=== PATIENT | male | born 1940 | race Caucasian/White ===

== ENCOUNTER 2017-07-03 11:48 | Outpatient (CLI) | payer MEDICARE, MEDICAID | END 2017-07-03 11:49 | disposition home or self-care (01) | LOC: BICRAD 11:48 | PROVIDERS: ATTEND Urology | DX: M54.9 Dorsalgia, unspecified (principal) | CPT/HCPCS: 74018 ==

== ENCOUNTER 2017-12-10 17:44 | Emergency (ER) | payer MEDICARE, MEDICAID ==
[2017-12-10] MEDS ORDERED: Acetaminophen 325 MG TAB ONE (19:19)
== END 2017-12-10 19:35 | disposition home or self-care (01) ==
LOC: ERS 17:44
DX: H60.92 Unspecified otitis externa, left ear (principal); J02.9 Acute pharyngitis, unspecified; I10 Essential (primary) hypertension; E11.9 Type 2 diabetes mellitus without complications; Z79.899 Other long term (current) drug therapy; Z79.891 Long term (current) use of opiate analgesic
CPT/HCPCS: 36416; 87081; 87430; 99283

== ENCOUNTER 2017-12-19 12:43 | Outpatient (CLI) | payer MEDICARE, MEDICAID ==
--- NOTE | 2017-12-19 15:22 | MRI ---
MRI LUMBAR SPINE: Date: 12-19-17 Provided Clinical History: Right hip pain, lumbar radiculopathy. FINDINGS: Five lumbar vertebral bodies are seen. Lumbar alignment appears normal. Vertebral body heights appear preserved. No focal concerning regional marrow signal abnormality is evident. Conus medullaris is no rmal in signal and terminates at an appropriate level. The visualized extraspinal soft tissues demons trate no significant abnormality. Small T2 hyperintense foci involving the left kidney, statistically reflecting cysts. L1-2: There is a broad based disc bulge and bilateral facet arthritis. There is mild central canal st enosis. There is no significant neuroforaminal apparent. L2-3: There is a broad based disc bulge and bilateral facet arthritis. There is left sided mild joe inal narrowing. No significant central canal or right neural foraminal narrowing. L3-4: There is a broad based disc bulge and bilateral facet arthritis. There is moderate central james l stenosis. There is mild left foraminal narrowing. There is mild to moderate right foraminal narrowi ng. L4-5: There is a broad based disc bulge with a superimposed central disc protrusion. Bilateral facet arthritis. Mild central canal stenosis. Moderate right foraminal narrowing. No significant left joe inal narrowing. L5-S1: There is no significant central canal or foraminal narrowing apparent. IMPRESSION: 1. Lumbar degenerative changes producing canal and foraminal narrowing as described above. POS: [facility]
== END 2017-12-19 12:44 | disposition home or self-care (01) ==
LOC: TBSIIMAG 12:43
PROVIDERS: ATTEND Neurological Surgery
DX: M47.26 Other spondylosis with radiculopathy, lumbar region (principal); M48.061 Spinal stenosis, lumbar region without neurogenic claudication; M99.83 Other biomechanical lesions of lumbar region
CPT/HCPCS: 72148

== ENCOUNTER 2018-01-08 07:01 | Day surgery (SDC) | payer MEDICARE, MEDICAID ==
[2018-01-01 11:03] VITALS: BMI 28.7
[2018-01-08] MEDS ORDERED: CEFAZOLIN 2 GM/50 ML BAG ONE (08:38)
[2018-01-08] MEDS ORDERED: Fentanyl 100 MCG/2 ML VIAL ONE ×4 (09:38→11:09)
[2018-01-08] MEDS ORDERED: SUGAMMADEX SODIUM 200 MG/2 ML VIAL ONE (09:39)
--- NOTE | 2018-01-08 10:34 | OP ---
DATE OF PROCEDURE: 01/08/2018 SURGEON: Andrew Mata M.D. GAS FITTER APPRENTICE: Vanna Abdi PROCEDURE: L3-4 laminectomy. PROCEDURE IN DETAIL: The patient was brought into the operating room and intubated. He was rolled i n prone position on gel-filled chest rolls. Incision made exposing L3-4 and our level was confirmed by x-ray. We performed complete L4 and inferior L3 laminectomies, completely decompressing the neura l elements. The wound was then extensively irrigated, immaculate hemostasis was secured. Vancomycin powder was applied and the wound was closed in anatomic layers.
[2018-01-08] MEDS ORDERED: HYDROcodone/Acetaminophen 5/325 mg Tablet ONE (12:28)
[2018-01-08] MEDS ORDERED: Dexamethasone 20 MG/5 ML VIAL ONE (14:51)
[2018-01-08] MEDS ORDERED: PROPOFOL 200 MG/20 ML VIAL ONE (14:51)
[2018-01-08] MEDS ORDERED: Lidocaine 1% PF 5 ML VIAL ONE (14:51)
[2018-01-08] MEDS ORDERED: Ondansetron PF 4 MG/2 ML Vial ONE (14:51)
[2018-01-08] MEDS ORDERED: ePHEDrine/0.9% NaCl/PF SYRINGE 50 mg/10 ml ONE (14:51)
== END 2018-01-08 12:50 | disposition home or self-care (01) ==
LOC: SDC 07:01
PROVIDERS: ATTEND Neurological Surgery
PROC: 00NY0ZZ Release Lumbar Spinal Cord, Open Approach (ICD-10-PCS; principal; 2018-01-08)
DX: M48.062 Spinal stenosis, lumbar region with neurogenic claudication (principal); M54.16 Radiculopathy, lumbar region; E11.9 Type 2 diabetes mellitus without complications; E78.5 Hyperlipidemia, unspecified; I25.10 Atherosclerotic heart disease of native coronary artery without angina pectoris; I10 Essential (primary) hypertension; K21.9 Gastro-esophageal reflux disease without esophagitis; Z79.84 Long term (current) use of oral hypoglycemic drugs; Z79.899 Other long term (current) drug therapy
CPT/HCPCS: 76001; 96374; 96376; J1100; J2001; J2405; J2704; J3010; J3370

== ENCOUNTER 2018-03-21 12:51 | Outpatient (CLI) | payer MEDICARE, MEDICAID ==
--- NOTE | 2018-03-21 15:44 | RAD ---
CERVICAL SPINE 4 VIEWS: HISTORY: Cervical radiculopathy without injury. Pain for 5 years. COMPARISON: 01/09/2007. FINDINGS: Four-view examination of the cervical spine is performed. There is fairly extensive multilevel disk- osteophytosis and facet arthrosis. The inferior aspect of C6, C6-7, C7, and C7-T1 are partially obsc ured on the lateral views. There is no open mouth odontoid view. No prevertebral soft tissue swelli ng. Generalized disk-osteophytosis and facet arthrosis. No abnormal translation between flexion and extension. IMPRESSION: Cervical spondylosis. No abnormal translation between flexion and extension. POS: [facility]
--- NOTE | 2018-03-21 15:48 | MRI ---
MRI CERVICAL SPINE WITHOUT CONTRAST: 03/21/18 HISTORY: Cervical radiculopathy. Cervical pain x5 years. COMPARISON: None. TECHNIQUE: Cervical spine MRI is performed without intravenous gadolinium administration. Multisequential, multi planar imaging performed. FINDINGS: Appropriate T1 marrow signal intensity of the cervical vertebrae. Cervical spine vertebral body heigh t is maintained. There is no fracture. there is no significant STIR hyperintensity to suggest vertebr al edema or ligamentous injury. There are type II Modic changes involving the superior end plate of T 1 and T2. The visualized brain parenchyma, cervicomedullary junction, cervical cord and the upper thoracic cord have a normal size and signal intensity. C2-C3: No significant central canal stenosis. Right neural foramen is patent. There is severe left fo raminal narrowing. C3-C4: Broad based disc bulge causes effacement of the ventral subarachnoid space and deforming the c ervical cord. Mild to moderate central canal stenosis. No signal abnormality in the cord. Moderate bi lateral foraminal narrowing. C4-C5: Broad based disc osteophyte complex abuts the thecal sac. Ventral CSF signal intensity is main tained. Mild deformity of the cervical cord. Mild central canal stenosis. Neural foramina are mildly narrowed bilaterally . C5-C6: There is a broad based disc osteophyte complex with a central component of posterior as well a s slightly superiorly disc extrusion. The subarachnoid space is effaced and there is deformity of the cervical spine. Moderate central canal stenosis. Mild to moderate bilateral foraminal narrowing. C6-C7: Broad based disc osteophyte complex abuts the thecal sac. The ventral subarachnoid space is ef faced. There is deformity of the cervical cord with moderate central canal stenosis. Moderate to javier re right and moderate left foraminal narrowing. C7-T1: No significant central canal stenosis. Mild to moderate bilateral foraminal narrowing. IMPRESSION: Degenerative change in the cervical spine as detailed above. POS: [facility]
== END 2018-03-21 12:52 | disposition home or self-care (01) ==
LOC: BICMRI 12:51
PROVIDERS: ATTEND Neurological Surgery
DX: M47.22 Other spondylosis with radiculopathy, cervical region (principal)
CPT/HCPCS: 72050; 72141

== ENCOUNTER 2018-04-17 01:02 | Outpatient (CLI) | payer MEDICARE, MEDICAID ==
[2018-04-17 12:54] LABS: Hemoglobin 14.4 g/dL (14.0-18.0); Mean Corpuscular Hemoglobin 32.3 pg (27.0-31.0); Mean Corpuscular Volume 95.1 fL (78.0-98.0); Mean Platelet Volume 8.1 fL (7.4-10.4); Platelet Count 219 thou/uL (130-400); RBC Distribution Width 11.3 % (11.5-14.5); Red Blood Cell (RBC) Count 4.46 mill/uL (4.70-6.10); White Blood Cell (WBC) Count 6.3 thou/uL (4.8-10.8)
[2018-04-17 13:18] LABS: Anion Gap 12 mmol/L (10-20); BUN (Urea Nitrogen) 12 mg/dL (8.4-25.7); Calc. Creatinine Clearance 0 mL/min (70-130); Calcium 10.3 mg/dL (7.8-10.44); Carbon Dioxide 21 mmol/L (23-31); Chloride 107 mmol/L (98-107); Estimated GFR-MDRD 62; Glucose 323 mg/dL (83-110); Potassium 4.6 mmol/L (3.5-5.1); Sodium 135 mmol/L (136-145)
== END 2018-04-17 01:03 | disposition home or self-care (01) ==
LOC: LABBT 01:02
PROVIDERS: ATTEND Neurological Surgery
DX: Z01.818 Encounter for other preprocedural examination (principal); M47.12 Other spondylosis with myelopathy, cervical region
CPT/HCPCS: 80048; 85027; 93005; 93010

== ENCOUNTER 2018-04-23 06:16 | Observation (INO) | payer MEDICARE, MEDICAID ==
[2018-04-17 11:24] VITALS: BMI 26.1
[2018-04-23] MEDS ORDERED: Sodium Chloride 0.9% 10 ML ONE (06:54)
[2018-04-23] MEDS ORDERED: Fentanyl 100 MCG/2 ML VIAL ONE (08:07)
[2018-04-23] MEDS ORDERED: Midazolam HCl 2 mg/2 ml Vial ONE (08:10)
[2018-04-23] MEDS ORDERED: Promethazine HCl 25 MG/ML VIAL IM PRN ×2 (09:48→10:59)
[2018-04-23] MEDS ORDERED: Promethazine HCl 25 MG/ML VIAL SLOW IVP PRN (09:48)
[2018-04-23] MEDS ORDERED: Ondansetron HCl/PF 4 MG/2 ML Vial IVP PRN (09:48)
--- NOTE | 2018-04-23 10:40 | OP ---
DATE OF PROCEDURE: 04/23/2018 CLINICAL REHABILITATION AIDE: HAYLEY Santana. PROCEDURES PERFORMED: Anterior cervical diskectomy C3-C4 and C5-C6 interbody arthrodesis, intervertebral biomechanical device, local morselized autograft, demineralized bone matrix, anterior titanium instrumentation C3-C4 and C5-C6. DESCRIPTION OF PROCEDURE: The patient was brought to the operating room and intubated. He was positioned supine in modest extension on a gel-filled donut. Incision was made in the right precervical area and dissected medial to the sternocleidomastoid muscle, identified the anterior cervical spine, and the level was confirmed by x-ray. We debrided the anterior osteophytes, placed distraction across the C3-C4 and C5-C6, completely removed the intervertebral disks and osteophytes, completely decompressing the neural elements. Bony endplates were decorticated for the purpose of arthrodesis, and appropriate-sized intervertebral biomechanical PEEK device was brought into the field and filled with demineralized bone matrix, local morselized autograft, and tapped in place securely at C3-C4 and C5-C6. Next, two separate anterior one level placed around the field and secured to C3-C4 and to C5-C6 using two 14-mm screws at each level. Wound was then extensively irrigated. Maximum hemostasis was secured. The wound was closed in anatomic layers over a drain. Job ID: [id number]
[2018-04-23] MEDS ORDERED: Promethazine 25 MG TAB PO PRN (10:59)
[2018-04-23] MEDS ORDERED: Mag-Al 1200 mg/1200 mg/30 ML UDCUP PO PRN (10:59)
[2018-04-23] MEDS ORDERED: Promethazine HCl 12.5 MG SUPP PR PRN (10:59)
[2018-04-23] MEDS ORDERED: Milk Of Magnesia 30 ML UDCUP PO PRN (10:59)
[2018-04-23] MEDS ORDERED: diphenhydrAMINE 50 MG/ML VIAL IVP PRN (10:59)
[2018-04-23] MEDS ORDERED: diphenhydrAMINE 25 MG CAP PO PRN (10:59)
[2018-04-23] MEDS ORDERED: Ondansetron PF 4 MG/2 ML Vial IM PRN (11:00)
[2018-04-23] MEDS ORDERED: Morphine 4 MG/ML VIAL SLOW IVP PRN ×2 (11:01→11:02)
[2018-04-23] MEDS ORDERED: traMADol HCl 50 MG TAB PO PRN (11:01)
[2018-04-23] MEDS ORDERED: HYDROcodone/Acetaminophen 10/325 mg Tablet PO PRN ×2 (11:01)
[2018-04-23] MEDS ORDERED: tiZANidine HCl 4 MG TAB PO PRN (11:01)
[2018-04-23] MEDS: traMADol HCl 50 MG TAB PO PRN ×2 (12:41→18:45)
[2018-04-23] MEDS: CEFAZOLIN 2 GM in Premix Bag 1 BAG IVPB SCH ×2 (14:40→21:45)
[2018-04-23] MEDS ORDERED: Ketorolac Tromethamine 30 MG/ML VIAL ONE (14:54)
[2018-04-23] MEDS ORDERED: Glycopyrrolate 0.2 MG/ML 5 ML SYRINGE ONE (14:54)
[2018-04-23] MEDS ORDERED: Ondansetron PF 4 MG/2 ML Vial ONE (14:54)
[2018-04-23] MEDS ORDERED: Rocuronium Bromide 10 MG/ML (10ML VIAL) ONE (14:54)
[2018-04-23] MEDS ORDERED: PROPOFOL 200 MG/20 ML VIAL ONE (14:54)
[2018-04-23] MEDS: glipiZIDE 5 MG TAB PO SCH (17:53)
[2018-04-23] MEDS: metFORMIN 500 MG TAB PO SCH (17:53)
--- NOTE | 2018-04-23 17:57 | CON ---
DATE OF CONSULTATION: REASON FOR CONSULTATION: Medical management, diabetes, hypertension. HISTORY OF PRESENT ILLNESS: The patient is a 77-year-old male, who was admitted to the hospital to undergo an anterior cervical diskectomy and fusion. The patient is currently postop and doing well. He is not having significant pain. In fact, he feels like he is ready to go home and feels eager to go home. He has no specific concerns or complaints at this particular time. REVIEW OF SYSTEMS: Fourteen system review was negative for any findings. Specifically, he is not having pain, fever, or any difficulty swallowing. PAST MEDICAL HISTORY: Notable for hypertension, diabetes mellitus type 2, gastroesophageal reflux, BPH, and history of episode of pancreatitis. PAST SURGICAL HISTORY: History of surgery to his right shoulder. SOCIAL HISTORY: History of occasional alcohol. No smoking. No drugs. Lives with his son. FAMILY HISTORY: No significant history of coronary artery disease, stroke, or cancer. ALLERGIES: NONE. CURRENT MEDICATIONS: 1. Finasteride 5 mg daily. 2. Nexium 40 daily. 3. Metformin 1000 mg b.i.d. 4. Glipizide 5 mg daily. 5. Lisinopril 20 daily. 6. Atenolol 25 mg daily. 7. Tamsulosin 0.4 mg daily. PHYSICAL EXAMINATION: GENERAL APPEARANCE: Age-appropriate male, Ecuadorean-speaking only. No distress. He is awake, alert, oriented, pleasant, and cooperative. HEENT: PERRL. No acute lesions. NECK: Has bandage anteriorly with a ROMEO drain with bulb suction with some serosanguinous fluid. HEART: Regular rate and rhythm without murmurs, gallops, or rubs. LUNGS: Clear to auscultation bilaterally with good chest wall expansion or exchange. ABDOMEN: Soft, nontender, and nondistended. Positive bowel sounds. No masses. No organomegaly. EXTREMITIES: Warm and dry. No edema. No cyanosis or clubbing. SKIN: Warm and dry. NEURO: The patient is moving all extremities spontaneously, has no evidence of focal deficits. LABORATORY DATA: Blood sugars 171 to 193. IMPRESSION AND PLAN: 1. Status post surgery for anterior approach cervical diskectomy with fusion. 2. Diabetes mellitus. The patient is on carb consistent diet. Resuming his usual home medications. We will add Accu-Cheks. 3. Hypertension. Resuming his usual home medical regimen. 4. History of BPH. We will continue with his home medications. I appreciate the consult. We will be happy to follow the patient while he is in the hospital. Job ID: [id number]
[2018-04-23] MEDS: Sodium Chloride 0.9% 1,000 ML IV SCH (18:53)
[2018-04-23] MEDS ORDERED: Finasteride 5 MG TAB PO SCH (21:00)
[2018-04-24] MEDS: hydrALAZINE 20 MG/ML VIAL SLOW IVP PRN ×2 (00:39→05:35)
[2018-04-24] MEDS: Sodium Chloride 0.9% 1,000 ML IV SCH (01:19)
[2018-04-24] MEDS: CEFAZOLIN 2 GM in Premix Bag 1 BAG IVPB SCH (05:35)
[2018-04-24 08:18] VITALS: BP 149/61; TEMP 98.3
[2018-04-24] MEDS ORDERED: Tamsulosin HCl 0.4 MG CAP PO SCH (09:00)
[2018-04-24] MEDS ORDERED: Lisinopril 20 MG TAB PO SCH (09:00)
[2018-04-24] MEDS ORDERED: Atenolol 25 MG TAB PO SCH (09:00)
[2018-04-24] MEDS: metFORMIN 500 MG TAB PO SCH (09:45)
[2018-04-24] MEDS: glipiZIDE 5 MG TAB PO SCH (09:45)
--- NOTE | 2018-04-24 11:52 | DIS ---
DATE OF ADMISSION: 04/23/2018 DATE OF DISCHARGE: 04/24/2018 The patient is a 77-year-old male status post C3-C4, C5-C6 ACDF. Following the procedure, he was transitioned to the [facility] floor where his pain was well controlled with p.o. medications, he did have some nausea, vomiting, but this is improved with medications and he was tolerating regular diet. The patient has been walking easily in the department and voiding appropriately. He did have ROMEO drain placed intraoperatively, but only 30 mL of output over the 1st night. He is awake, alert, sitting up, and walking around the room this morning. He is in no acute distress. He has free active range of motion of all extremities, 5/5 strength throughout. Incision is dry, soft, intact. There is a small amount of serosanguineous drainage in the ROMEO. We will plan to dismiss the patient to home following ROMEO removal. I have discussed home care precautions. We will follow up in 2 weeks in the office. Job ID: [id number]
== END 2018-04-24 11:13 | disposition home or self-care (01) ==
LOC: SDC 06:16 → SJJU 10:38 → INTOOBSV 10:38
PROVIDERS: ADMIT Neurological Surgery; ATTEND Neurological Surgery
PROC: 0RG20A0 Fusion of 2 or more Cervical Vertebral Joints with Interbody Fusion Device, Anterior Approach, Anterior Column, Open Approach (ICD-10-PCS; principal; 2018-04-23)
DX: M50.322 Other cervical disc degeneration at C5-C6 level (principal); I10 Essential (primary) hypertension; I25.10 Atherosclerotic heart disease of native coronary artery without angina pectoris; E11.9 Type 2 diabetes mellitus without complications; E78.5 Hyperlipidemia, unspecified; K21.9 Gastro-esophageal reflux disease without esophagitis; N40.0 Benign prostatic hyperplasia without lower urinary tract symptoms; Z79.84 Long term (current) use of oral hypoglycemic drugs; Z79.899 Other long term (current) drug therapy; Z98.890 Other specified postprocedural states
CPT/HCPCS: 20930; 20936; 22551; 22552; 22846; 22853 ×2; 76000; 82962 ×2; 96365; 96366 ×2; 96375; 96376; 97139; C1713; C1776; G0378; 36416; J0360; J1885; J2250; J2405; J2704; J3010; J3490

== ENCOUNTER 2018-05-10 12:37 | Outpatient (CLI) | payer MEDICARE, MEDICAID ==
--- NOTE | 2018-05-10 14:51 | RAD ---
CERVICAL SPINE AP AND LATERAL STANDARD: Date: 05/10/18 HISTORY: M54.13 cervical radiculopathy. COMPARISON: Cervical spine radiographs dated 03/21/18. FINDINGS: New ACDF hardware at C3-4, as well as C5-6. There is satisfactory location of diskectomy cages. No ca ge migration. No acute superimposed fracture or malalignment. C6-7 degenerative changes are present. IMPRESSION: 1. Satisfactory postoperative appearance. 2. Only seen on the second open-mouth odontoid view is a possible radiopacity projecting over the rig ht orbit. POS: [facility]
== END 2018-05-10 12:38 | disposition home or self-care (01) ==
LOC: TBSIIMAG 12:37
PROVIDERS: ATTEND Neurological Surgery
DX: M54.12 Radiculopathy, cervical region (principal); Z98.890 Other specified postprocedural states
CPT/HCPCS: 72040

== ENCOUNTER 2018-06-12 14:07 | Outpatient (CLI) | payer MEDICARE, MEDICAID ==
--- NOTE | 2018-06-12 14:41 | RAD ---
CERVICAL SPINE THREE VIEWS: Indications: Cervical disc degeneration. Follow up surgery. Comparison: 05-10-18 FINDINGS: Anterior fusion procedure with anterior plate and screws noted transfixing C3-4 interbody implant. Sl ight retraction of the C3 screws is stable from prior exam. Anterior plate and screws again noted transfixing C5-6 with interbody implant. The hardware is unchan ged in position. Mild loss of disc space at C4-5 with mild degenerative changes stable in appearance. Loss of disc spa ce at C6-7 with degenerative spurring is again noted. Posterior alignment is preserved and unchanged. IMPRESSION: Stable findings when compared to 05-10-18. POS: [facility]
== END 2018-06-12 14:08 | disposition home or self-care (01) ==
LOC: TBSIIMAG 14:07
PROVIDERS: ATTEND Neurological Surgery
DX: M48.02 Spinal stenosis, cervical region (principal); M50.30 Other cervical disc degeneration, unspecified cervical region
CPT/HCPCS: 72040

== ENCOUNTER 2018-12-13 13:53 | Inpatient (IN) | payer MEDICARE, MEDICAID ==
[2018-12-13] MEDS ORDERED: Pantoprazole 40 MG VIAL ONE (14:12)
--- NOTE | 2018-12-13 14:24 | RAD ---
EXAM: Chest one view: HISTORY: Abdominal and epigastric pain COMPARISON: 08/16/2015 FINDINGS: Cervical spine anterior cervical fusion changes. Heart size: Within normal limits. Lungs: Clear of acute process. No evidence for pneumonia, pleural effusion, acute edema, or pneumothorax, or other significant acute process. IMPRESSION: No significant acute intrathoracic disease. Atherosclerosis of the aorta.
[2018-12-13] MEDS ORDERED: Morphine 4 MG/ML VIAL ONE (14:37)
[2018-12-13] MEDS ORDERED: Ondansetron PF 4 MG/2 ML Vial ONE (14:38)
[2018-12-13 15:07] LABS: Hemoglobin 14.3 g/dL (14.0-18.0); Mean Corpuscular HGB CONC 35.1 g/dL (32.0-36.0); Mean Corpuscular Hemoglobin 33.6 pg (27.0-31.0); Mean Corpuscular Volume 95.8 fL (78.0-98.0); Mean Platelet Volume 7.4 fL (7.4-10.4); Platelet Count 195 thou/uL (130-400); RBC Distribution Width 11.5 % (11.5-14.5); Red Blood Cell (RBC) Count 4.24 mill/uL (4.70-6.10); White Blood Cell (WBC) Count 9.2 thou/uL (4.8-10.8)
[2018-12-13 15:23] LABS: Band 12 % (5-11); Lymphocytes 5 % (21-51); MDiff Complete? YES; Monocytes 4 % (0-10); Neutrophil 79 % (42-75); Platelet Morphology Comment Appears Adequate
[2018-12-13 15:30] LABS: ALT (SGPT) 211 U/L (8-55); AST (SGOT) 647 U/L (5-34); Alkaline Phosphatase 101 U/L (40-110); Anion Gap 15 mmol/L (10-20); BUN (Urea Nitrogen) 18 mg/dL (8.4-25.7); Bilirubin, Total 1.5 mg/dL (0.2-1.2); Calc. Creatinine Clearance 0 mL/min (70-130); Calcium 10.1 mg/dL (7.8-10.44); Carbon Dioxide 23 mmol/L (23-31); Chloride 104 mmol/L (98-107); Estimated GFR-MDRD 59; Glucose 295 mg/dL (83-110); Lipase 23 U/L (8-78); Potassium 4.7 mmol/L (3.5-5.1); Sodium 137 mmol/L (136-145)
[2018-12-13] MEDS ORDERED: Cefepime 1 GM VIAL ONE (16:08)
--- NOTE | 2018-12-13 16:31 | ULT ---
Exam: Right upper quadrant ultrasound: HISTORY: Pain COMPARISON: None FINDINGS: Visualized liver:Minimally enlarged with slightly coarse heterogeneous echogenicity Gallbladder:No evidence of gallstones, wall thickening, edema, or pericholecystic fluid. Common bile duct:0.8 cm The visualized pancreas and right kidney are unremarkable. No evidence for abscess or abnormal fluid collection in the right upper quadrant. IMPRESSION: Minimal hepatomegaly with coarse altered echogenicity. Common bile duct 0.8 cm. No evidence of gallst ones.
[2018-12-13] MEDS ORDERED: Acetaminophen 500 MG TAB ONE (18:46)
--- NOTE | 2018-12-13 19:12 | CT ---
CT Abdomen Pelvis W Con History: Abdominal pain Comparison: Gallbladder ultrasound same day Findings: Mild scarring in the lung bases. No pericardial effusion. Liver, spleen, gallbladder are al l unremarkable as well as the pancreas. Aortic contour is nonaneurysmal. Dense calcifications throughout the prostate. Moderate diverticular disease of the sigmoid and descen ding colon without active current inflammation. The appendix is visualized and is normal. No free intraperitoneal gas or fluid. No retroperitoneal periaortic adenopathy. Adrenal glands are normal. High-grade degenerative disc space disease at L5/S1. No acute osseous abnormality. Impression: No acute inflammatory process within the abdomen or pelvis.
[2018-12-13] MEDS ORDERED: Dextrose 5% in Water 1,000 ML IV PRN (21:07)
[2018-12-13] MEDS ORDERED: Dextrose 50% Abboject 50 ML SYRINGE SLOW IVP PRN (21:07)
[2018-12-13] MEDS ORDERED: hydrALAZINE 20 MG/ML VIAL SLOW IVP PRN (21:07)
[2018-12-13] MEDS ORDERED: HumaLOG 300 UNITS/3 ML VIAL SC PRN (21:07)
[2018-12-13] MEDS ORDERED: Ondansetron PF 4 MG/2 ML Vial IVP PRN (21:07)
[2018-12-13 21:19] LABS: Troponin I 0.021 ng/mL (< 0.028)
[2018-12-13] MEDS ORDERED: Famotidine/PF 20 mg/2ml Vial SLOW IVP SCH (22:00)
[2018-12-13 23:00] VITALS: BMI 29.3
[2018-12-13] MEDS: Sodium Chloride 0.9% 1,000 ML IV SCH (23:26)
[2018-12-13] MEDS: Piperacillin/Tazobactam 3.375 GM in Sodium Chloride 0.9% 100 ML IVPB SCH (23:27)
--- NOTE | 2018-12-13 23:46 | HP ---
PRIMARY CARE PHYSICIAN: Mery Patino MD. CHIEF COMPLAINT: Epigastric pain. HISTORY OF PRESENT ILLNESS: Mr. Gaviria is a pleasant 78-year-old gentleman, who presents to the emergency room after he had a sudden onset of severe epigastric pain. He said it started in the center of his abdomen in the upper part and radiated to both sides. He also started vomiting several times. His [id number], who is acting as the military education coordinator, says that he got up in the morning as usual and was feeling fine. He drank a smoothie and then went for his usual walk. He came back, fed his horses and came inside and this is about when the pain started. He also had some chills and a funny feeling in his throat. The pain radiated towards his back and otherwise no other complaints. He denies having any carin chest pain per se, although the pain did kind of radiate upwards. There was no shortness of breath noted. No palpitations. When he came to the ER, he was noted to have an elevated temperature of a 102.9. His heart rate was also elevated and it was also noted that his liver function tests were elevated too. He was initially evaluated by General Surgery, but they thought that his problems were more medical related and he is being admitted for further evaluation. REVIEW OF SYSTEMS: All systems were reviewed and are negative except for that mentioned in the history of present illness. PAST MEDICAL HISTORY: Significant for pancreatitis in the past, hypertension, diabetes and BPH. With regard to the pancreatitis, he is not really sure what caused it. However, he did drink heavily in the past, but he says he does not do this any anymore and he was not a drinker during the time that he had the pancreatitis. PAST SURGICAL HISTORY: He has had right shoulder surgery, back surgery. FAMILY HISTORY: No history of any heritable diseases. ALLERGIES: NO KNOWN DRUG ALLERGIES. SOCIAL HISTORY: He is a nonsmoker and nondrinker. He lives with family and he is a full code. CURRENT MEDICATIONS: Include: 1. Metformin 1000 mg twice daily. 2. Flomax 0.4 mg at bedtime. 3. Glipizide 5 mg daily. 4. Lisinopril 20 mg daily. 5. Nexium 40 mg daily. 6. Finasteride 5 mg daily. 7. Atenolol 25 mg daily. PHYSICAL EXAMINATION: GENERAL: He is alert and oriented. He appears to be in no acute distress. He is well developed and well nourished. VITAL SIGNS: Currently blood pressure 142/72, heart rate 115, respiratory rate of 24, temperature is 100.8. HEENT: Pupils are equal, round, and reactive. Extraocular muscles are intact. His sclerae anicteric. Throat, no erythema, no exudates. NECK: No adenopathy, no bruits. LUNGS: Clear to auscultation. There is no wheezing, no rales, no rhonchi. CARDIOVASCULAR: He has a normal S1, S2. There is no S3 or S4. No murmurs, clicks, or rubs. ABDOMEN: Soft, distended. Positive for bowel sounds. There is no rebound, no guarding. No organomegaly. He did have some mild epigastric tenderness, but again no rebound, no guarding, no organomegaly. EXTREMITIES: There is no clubbing, cyanosis. No edema. No calf tenderness, no joint effusions. NEUROLOGIC: His cranial nerves are intact. Muscle strength is 5/5. SKIN AND INTEGUMENT: No skin changes, no rash. LABORATORY DATA: Sodium 137, potassium 4.7, chloride is 104, CO2 is 23, BUN of 18, creatinine 1.2, glucose is 295, total bilirubin is 1.5, AST is 647, ALT is 211. Lactic acid is 3.6. Troponin is 0.010. White blood cell count is 9.2, hemoglobin 14.3, hematocrit is 40.7, and platelet count is 195. He had an abdominal ultrasound showing mild hepatomegaly with some echogenicity. The common bile duct was 0.8. No evidence of any gallstones. No edema or pericholecystic fluid. He had a CT scan of the abdomen and pelvis, showing no inflammatory process within the abdomen. ASSESSMENT: This is a pleasant 78-year-old gentleman, who presents with the sudden onset of epigastric pain, nausea and vomiting. He has been noted to have elevated liver function test. However, no evidence of any gallstones radiographically either on ultrasound or CT. He also meets sepsis criteria with fever and elevated lactic acid as well as tachycardia. The patient will be admitted to telemetry due to the sepsis. It is unclear the etiology of the epigastric pain, but suspect a gastrointestinal origin. Therefore, we will go ahead and consult Gastroenterology. We will place him empirically on Zosyn. If blood cultures have not been done in the ER, we will go ahead and get these. 1. The patient has risk factors for coronary artery disease with diabetes and hypertension and at times epigastric pain can be an anginal equivalent. If his gastroenterology workup is unremarkable, then likely we will need to pursue a cardiac workup such as getting a stress test. 2. Hypertension. His blood pressure was initially elevated. This has since improved. We will continue the atenolol as well as the lisinopril and have p.r.n. medications available. 3. Diabetes mellitus. We will hold off on the metformin as well as the glipizide and place him on a sliding scale insulin. Otherwise, further treatment is pending his clinical course. Job ID: [id number]
[2018-12-14 00:18] LABS: Lactic Acid 3.7 mmol/L (0.5-2.2)
[2018-12-14] MEDS ORDERED: HYDROcodone/Acetaminophen 5/325 mg Tablet PO PRN ×2 (00:49)
[2018-12-14] MEDS ORDERED: Acetaminophen 325 MG TAB PO PRN ×2 (00:49→20:41)
[2018-12-14] MEDS ORDERED: Morphine 4 MG/ML VIAL SLOW IVP PRN (00:49)
[2018-12-14] MEDS: Piperacillin/Tazobactam 3.375 GM in Sodium Chloride 0.9% 100 ML IVPB SCH ×4 (05:23→22:30)
[2018-12-14 06:22] LABS: #Monocytes 0.5 thou/uL (0.11-0.59); #Neutrophils 8.1 thou/uL (1.40-6.50); %Eosinophils 0.2 % (0.0-10.0); %Lymphocytes 10.2 % (21.0-51.0); %Monocytes 5.5 % (0.0-10.0); Hemoglobin 12.5 g/dL (14.0-18.0); Mean Corpuscular HGB CONC 34.6 g/dL (32.0-36.0); Mean Corpuscular Hemoglobin 33.5 pg (27.0-31.0); Mean Corpuscular Volume 96.9 fL (78.0-98.0); Mean Platelet Volume 7.6 fL (7.4-10.4); Platelet Count 166 thou/uL (130-400); RBC Distribution Width 11.9 % (11.5-14.5); Red Blood Cell (RBC) Count 3.74 mill/uL (4.70-6.10); White Blood Cell (WBC) Count 9.7 thou/uL (4.8-10.8)
[2018-12-14 06:40] LABS: Anion Gap 14 mmol/L (10-20); BUN (Urea Nitrogen) 19 mg/dL (8.4-25.7); Calc. Creatinine Clearance 51 mL/min (70-130); Calcium 9.1 mg/dL (7.8-10.44); Carbon Dioxide 21 mmol/L (23-31); Chloride 106 mmol/L (98-107); Estimated GFR-MDRD 56; Glucose 169 mg/dL (83-110); Potassium 4.1 mmol/L (3.5-5.1); Sodium 137 mmol/L (136-145)
[2018-12-14] MEDS: Atenolol 25 MG TAB PO SCH (08:44)
[2018-12-14] MEDS: Finasteride 5 MG TAB PO SCH (08:44)
[2018-12-14] MEDS: Tamsulosin HCl 0.4 MG CAP PO SCH (08:44)
[2018-12-14] MEDS: Famotidine/PF 20 mg/2ml Vial SLOW IVP SCH ×2 (08:45→20:19)
[2018-12-14] MEDS: Enoxaparin Sodium 40 MG/0.4 ML SYRINGE SC SCH (08:45)
[2018-12-14] MEDS: Sodium Chloride 0.9% 1,000 ML IV SCH ×3 (08:47→22:32)
[2018-12-14] MEDS ORDERED: FLU VACC TS2019-20(65YR UP)/PF 180 MCG/0.5 ML SYRINGE IM ONE (09:00)
[2018-12-14] MEDS ORDERED: Prevnar 13-Val Conj/PF 0.5 ML SYRINGE IM ONE (09:00)
[2018-12-14] MEDS ORDERED: Aspirin 325 MG TAB PO SCH (09:15)
[2018-12-14 10:45] LABS: Lactic Acid 3.1 mmol/L (0.5-2.2)
[2018-12-14 11:11] LABS: ALT (SGPT) 397 U/L (8-55); AST (SGOT) 376 U/L (5-34); Albumin 3.4 g/dL (3.4-4.8); Alkaline Phosphatase 103 U/L (40-110); Bilirubin, Direct 3.8 mg/dL (0.1-0.3); Bilirubin, Total 4.9 mg/dL (0.2-1.2); Lipase 20 U/L (8-78); Protein, Total 6.3 g/dL (5.8-8.1)
--- NOTE | 2018-12-14 11:58 | PDOC.HOSPP ---
- Subjective Encounter Date: 12/14/18 Encounter Time: 10:21 Subjective: 78 y/o male with BPH, HTN and DM admitted with acute onset of epigastric pain associated with nausea, fever and abnormal LFT. Started on broad spectrum antibiotics. Abdominal pain has subsided but he continues to have intermittent fever. No further vomiting but he is NPO currently - Objective Vital Signs & Weight: Vital Signs (12 hours) Temp Pulse Resp BP BP Pulse Ox 12/14/18 11:29 99.3 F 80 16 153/70 H 94 L 12/14/18 08:34 100.2 F H 84 16 134/61 95 12/14/18 08:00 95 12/14/18 03:38 99.1 F 80 18 132/59 L 94 L Weight Weight 160 lb 5 oz Result Diagrams: 12/14/18 05:06 12/14/18 05:06 Additional Labs: Accuchecks 12/14/18 12/14/18 12/14/18 11:30 05:36 00:15 POC Glucose 173 H 168 H 174 H Hospitalist ROS - Medication Medications: Active Medications Generic Name Dose Route Start Last Admin Trade Name Ilyaq PRN Reason Stop Dose Admin Atenolol 25 mg 12/14/18 09:00 12/14/18 08:44 Tenormin PO 25 mg DAILY STEVE Administration Enoxaparin Sodium 40 mg 12/14/18 09:00 12/14/18 08:45 Lovenox SC 40 mg 0900 STEVE Administration Famotidine 20 mg 12/14/18 09:00 12/14/18 08:45 Pepcid SLOW IVP 20 mg Q12HR STEVE Administration Finasteride 5 mg 12/14/18 09:00 12/14/18 08:44 Proscar PO 5 mg DAILY STEVE Administration Piperacillin Sod/Tazobactam 100 mls @ 200 mls/hr 12/13/18 23:59 12/14/18 11: 34 Sod 3.375 gm/ Sodium Chloride IVPB 100 mls Q6HR STEVE Administration Sodium Chloride 1,000 mls @ 100 mls/hr 12/13/18 21:15 12/14/18 08:47 Normal Saline 0.9% IV 1,000 mls .Q10H STEVE Administration Tamsulosin HCl 0.4 mg 12/14/18 09:00 12/14/18 08:44 Flomax PO 0.4 mg DAILY STEVE Administration - Exam General Appearance: awake alert Eye: anicteric sclera ENT: normocephalic atraumatic Neck: supple, symmetric, no JVD Heart: RRR Respiratory: CTAB, no wheezes, no rales, no ronchi, normal chest expansion Gastrointestinal: soft, non-distended, normal bowel sounds Gastrointestinal - other findings: mild tenderness on deep palptation Extremities: no cyanosis, no edema Neurological: cranial nerve grossly intact, no focal deficits Psychiatric: normal affect, A&O x 3 Hosp A/P (1) Sepsis Code(s): A41.9 - SEPSIS, UNSPECIFIED ORGANISM Status: Acute (2) Lactic acidosis Code(s): E87.2 - ACIDOSIS Status: Acute (3) Hyperbilirubinemia Code(s): E80.6 - OTHER DISORDERS OF BILIRUBIN METABOLISM Status: Acute (4) Abnormal LFTs Code(s): R94.5 - ABNORMAL RESULTS OF LIVER FUNCTION STUDIES Status: Acute (5) Abdominal pain Code(s): R10.9 - UNSPECIFIED ABDOMINAL PAIN Status: Acute (6) Diverticula of colon Code(s): K57.30 - DVRTCLOS OF LG INT W/O PERFORATION OR ABSCESS W/O BLEEDING Status: Acute (7) Diabetes mellitus Code(s): E11.9 - TYPE 2 DIABETES MELLITUS WITHOUT COMPLICATIONS Status: Acute (8) BPH (benign prostatic hyperplasia) Code(s): N40.0 - BENIGN PROSTATIC HYPERPLASIA WITHOUT LOWER URINRY TRACT SYMP Status: Acute (9) HTN (hypertension) Code(s): I10 - ESSENTIAL (PRIMARY) HYPERTENSION Status: Acute - Plan Continue broad spectrum antibiotic therapy with zosym NPO to continue awaiting Gi consult. Get MRI abdomen, CRP, ESR, lactic acid. Get CMP in the am.
--- NOTE | 2018-12-14 16:03 | MRI ---
MRI ABDOMEN WITH AND WITHOUT IV CONTRAST: 12/14/18 HISTORY: Obstructive jaundice of unclear etiology. Epigastric pain. FINDINGS: No gallstones are seen. No intra or extrahepatic biliary ductal dilatation is seen. The common duct m easures 7 mm in diameter. There is a filling defect in the common bile duct on a single image (image 29, series 3). This may represent choledocholithiasis. The liver demonstrates signal dropout of the [id number] images concerned for fatty infiltration. No hepatic mass is seen. The spleen, pancreas and adrenal glands are normal. There are cysts in the kid neys on both sides. No free fluid or lymphadenopathy is seen. There is no evidence of aneurysmal dilatation of the abdomi nal aorta. There are degenerative changes in the spine. IMPRESSION: 1. Probable choledocholithiasis. 2. Bilateral renal cysts. POS: [facility]
[2018-12-14 16:10] LABS: HBCM Index 0.05 S/CO (0-0.79); HBSAg Index 0.25 S/CO (0-0.99); Hep A IgM AB Non-Reactive (NonReactive); Hep A IgM S/CO 0.22 S/CO (0-0.79); Hep B Surf Ag Non-Reactive S/CO (NonReactive); Hep C IgG Ab Non-Reactive (NonReactive); Hep C Index 0.21 S/CO (0-0.79); Hepatitis B Core IgM Abs Non-Reactive (NonReactive)
--- NOTE | 2018-12-14 17:33 | CON ---
DATE OF CONSULTATION: 12/14/2018 REASON FOR CONSULT: Abdominal pain and abnormal liver enzymes. HISTORY OF PRESENT ILLNESS: This comes from talking with the patient and the patient's son at the bedside, who translates for him. Mr. Gaviria is a pleasant 78-year-old gentleman, who was admitted to the hospital, presented to the emergency room yesterday with complaints of epigastric pain, it is pretty severe, radiating to his back, going rather on the side. His son notes that he has been having this on and off after eating sometimes and he would take some vsem-vax-lmzddgo omeprazole, thinking it was just spicy foods and reflux or ulcers, but this pain was pretty bad, it has caused him to vomit. He also had some chills and rigors associated with it and decided to come to the hospital. His son notes he does not usually go to the doctor and does not really complain when he is sick typically. Here, he was evaluated, pulse around 100, temperature up to 102. He had cultures drawn and was given vancomycin, cefepime as well as Protonix and some IV fluids and admitted to the hospital. In the emergency room, he had chest x-ray, which was normal. Abdominal ultrasound with common bile duct of 0.8 cm with no overt gallstones, minimal hepatomegaly, and no evidence of gallbladder wall thickening and then last evening, he had a CT scan of the abdomen and pelvis, showed prostatic calcifications, diverticular disease without inflammation. No adenopathy and no acute inflammatory process in the abdomen or pelvis. Now apparently, he is going for an MRI. He feels much better today and wants to leave. He actually asked if he can go home. PAST MEDICAL HISTORY: He had pancreatitis in this hospital in 2011, was told this is related to alcohol. He was not really a heavy drinker, but does not drink at all now, that has never recurred. He has had diabetes and BPH. PAST SURGICAL HISTORY: Right shoulder surgery, multiple back surgeries, and ACDF about a month ago. FAMILY HISTORY: Negative for colorectal cancer or liver disease. ALLERGIES: NONE KNOWN. SOCIAL HISTORY: Does not smoke. Does not drink now. Lives with his family. Does not use drugs. HOME MEDICATIONS: 1. Metformin. 2. Glipizide. 3. Tamsulosin. 4. Lisinopril. 5. Proscar. 6. Nexium. 7. Atenolol. Here, he is on, 1. Tenormin. 2. Lovenox. 3. Pepcid. 4. Proscar. 5. Apresoline p.r.n. 6. Insulin sliding scale. 7. Zofran p.r.n. 8. Zosyn. 9. Normal saline 100. PHYSICAL EXAMINATION: GENERAL: He is resting comfortably in bed. VITAL SIGNS: Since admission, his T-max is 100.2, which was early this morning, presently 99.3. Pulse is 80, respiratory rate 16, and blood pressure 153/70. GENERAL: He may be a little bit icteric, it is hard to tell. His conjunctivae are clear, little bit muddy. Oropharynx, no lesions. NECK: Supple. No adenopathy. LUNGS: Clear. He will take a deep breath without pain. HEART: Regular rate and rhythm. ABDOMEN: Soft, nontender, slightly protuberant. No shifting dullness. No fluid wave. No palpable hepatomegaly. No right upper quadrant pain or guarding. EXTREMITIES: No clubbing, cyanosis, or edema. SKIN: Without rash or lesions. LABORATORY STUDIES: White count when he came in, he was 9.2, it was 9.7 today; hemoglobin is 12.5; platelet count is 166. He had 84% segs, sedimentation rate was 15. Sodium was 137, potassium 4.7, BUN and creatinine are 18 and 1.2, glucose 295. Bilirubin was 1.5. AST and ALT were 647 and 211 with alkaline phosphatase of 101 on admission. Albumin was 4, protein was 7, CRP was 9.86. Hemoglobin A1c last October was 8, lipase is 23. Lactic acid was 3.6 yesterday, 3.1 today. Today's bilirubin is 4.9, AST of 376, and ALT of 397. Direct bilirubin is 3.8. Electrolytes within normal limits. Urinalysis not done. Microbiology, blood cultures are pending. Urine culture was not drawn. ASSESSMENT: The patient in acute illness with epigastric pain radiating to his back with elevated liver enzymes and fever, this would be suspicious for cholangitis. He is on antibiotics. His temperature has come down. However, his bilirubin has gone up. Interestingly, reportedly, he did not have any stones on ultrasound and an 8 mm common bile duct. CAT scan, there was no comment on anything about the liver at all. Apparently, he is going for an MRI now of the abdomen and I called [facility] that I am not sure what they ordered with that, but I will ask for MRCP protocol. Would continue antibiotics. He has had symptoms of pain in the epigastrium going to his back, concerning for possible biliary infection and biliary pain on and off recently. We will check hepatitis panel. We will await MRI. Job ID: [id number]
[2018-12-15] MEDS: Piperacillin/Tazobactam 3.375 GM in Sodium Chloride 0.9% 100 ML IVPB SCH ×4 (06:02→23:45)
[2018-12-15] MEDS: Atenolol 25 MG TAB PO SCH (06:22)
[2018-12-15 07:45] LABS: #Lymphocytes 0.5 thou/uL (1.20-3.40); #Monocytes 0.3 thou/uL (0.11-0.59); #Neutrophils 4.4 thou/uL (1.40-6.50); %Basophils 0.3 % (0.0-1.0); %Eosinophils 0.2 % (0.0-10.0); %Lymphocytes 8.9 % (21.0-51.0); %Monocytes 5.4 % (0.0-10.0); %Neutrophils 85.1 % (42.0-75.0); Hemoglobin 12.3 g/dL (14.0-18.0); Mean Corpuscular HGB CONC 34.7 g/dL (32.0-36.0); Mean Corpuscular Hemoglobin 33.2 pg (27.0-31.0); Mean Corpuscular Volume 95.8 fL (78.0-98.0); Mean Platelet Volume 7.6 fL (7.4-10.4); Platelet Count 136 thou/uL (130-400); RBC Distribution Width 11.8 % (11.5-14.5); Red Blood Cell (RBC) Count 3.71 mill/uL (4.70-6.10); White Blood Cell (WBC) Count 5.2 thou/uL (4.8-10.8)
[2018-12-15 07:50] LABS: INR-International Normal Ratio 1.3
[2018-12-15 08:11] LABS: ALT (SGPT) 251 U/L (8-55); AST (SGOT) 146 U/L (5-34); Albumin 3.2 g/dL (3.4-4.8); Alkaline Phosphatase 102 U/L (40-110); Anion Gap 14 mmol/L (10-20); BUN (Urea Nitrogen) 13 mg/dL (8.4-25.7); Bilirubin, Total 4.4 mg/dL (0.2-1.2); Calc. Creatinine Clearance 54 mL/min (70-130); Carbon Dioxide 18 mmol/L (23-31); Chloride 108 mmol/L (98-107); Estimated GFR-MDRD 60; Globulin 2.9 g/dL (2.4-3.5); Glucose 200 mg/dL (83-110); Lipase 12 U/L (8-78); Potassium 3.6 mmol/L (3.5-5.1); Protein, Total 6.1 g/dL (5.8-8.1); Sodium 136 mmol/L (136-145)
[2018-12-15] MEDS ORDERED: Iothalamate Meglumine 60% 50 ML VIAL FS ONE (09:52)
[2018-12-15] MEDS ORDERED: Indomethacin 50 MG SUPP ONE (09:52)
[2018-12-15] MEDS ORDERED: Fentanyl 100 MCG/2 ML VIAL ONE ×2 (10:02→12:13)
[2018-12-15] MEDS: Enoxaparin Sodium 40 MG/0.4 ML SYRINGE SC SCH (11:10)
[2018-12-15] MEDS: Famotidine/PF 20 mg/2ml Vial SLOW IVP SCH ×2 (11:10→20:49)
--- NOTE | 2018-12-15 12:09 | RAD ---
ERCP intraoperative fluoroscopy HISTORY: Choledocholithiasis. FINDINGS: Intraoperative fluoroscopy was provided for ERCP procedure. Spot fluoroscopic images show c ontrast opacification of a common bile duct upper limits of normal in caliber. Subtle rounded filling defect is present within the central common duct on image #6. Visualized portions of the intr ahepatic biliary system are unremarkable.
[2018-12-15] MEDS ORDERED: Ondansetron HCl/PF 4 MG/2 ML Vial IVP PRN (12:11)
[2018-12-15] MEDS ORDERED: Promethazine HCl 25 MG/ML VIAL IM PRN (12:11)
[2018-12-15] MEDS ORDERED: Promethazine HCl 25 MG/ML VIAL SLOW IVP PRN (12:11)
[2018-12-15] MEDS: Tamsulosin HCl 0.4 MG CAP PO SCH (13:14)
[2018-12-15] MEDS: Finasteride 5 MG TAB PO SCH (13:14)
[2018-12-15] MEDS: Sodium Chloride 0.9% 1,000 ML IV SCH (13:15)
--- NOTE | 2018-12-15 14:00 | OP ---
DATE OF PROCEDURE: 12/15/2018 PREPROCEDURE DIAGNOSES: Presentation with fever, leukocytosis, and obstructive pattern liver function tests with history suggestive of biliary colic recently, but no gallstones on ultrasound. MRCP yesterday showed "probable choledocholithiasis." PROCEDURE PERFORMED: Endoscopic retrograde cholangiopancreatography and sphincterotomy. POSTPROCEDURE DIAGNOSES: 1. Periampullary diverticula. 2. No overt choledocholithiasis, possibly some biliary sludge. 3. Very dark bile consistent with obstructed biliary tree. No overt strictures. RECOMMENDATIONS: Monitor H and H. HIDA scan tomorrow to evaluate for gallbladder function. ANESTHESIA: General. The patient also received 100 mg suppository indomethacin, is on antibiotics already. DESCRIPTION OF PROCEDURE: The patient was warned of the risks, benefits, and possible complications of endoscopy including perforation, reaction to medication, pancreatitis. After consent was obtained, he was brought to the endoscopy suite , where he was sedated in gradual fashion. He was intubated and then placed in a prone position on fluoroscopy table. Suppository was placed in the patient's rectum. A bite block was placed inside the orifice. The endoscope was advanced through the esophagus, stomach, and second and third portions of the duodenum. The ampulla was brought into view and was found to be on the saddle of a periampullary diverticulum. Cannulation was obtained with assistance of a guidewire. Cholangiogram revealed about a 7 cm x 10 mm common bile duct. There was no evidence of intrahepatic ductal dilatation. The gallbladder was never filled. There were no obvious filling defects; however, the distal duct was distorted secondary to periampullary diverticula. This may have been what was seen on the patient's MRCP. A sphincterotomy was performed generously. There was slight bleeding, which stopped on its own. A 12 to 15 mm balloon was brought through the duct several times with no stones, but then very dark bile was noted to come through that. We injected another cholangiogram, and it looked like maybe there were some small stones, and the basket was used to remove in the bile duct with no success removing stones. Then, a 12 mm balloon was used and it was able to be pulled through the sphincterotomy fully, distended, fully inflated with no filling defects removed. No stones removed. I suspect that with our first sphincterotomy and passed the stone, we may have pulled some sludge through the stenotic ampulla which was often seen in conjunction with periampullary diverticula. There was good drainage of very dark bile at the termination of the procedure. There was no bleeding from the sphincterotomy site. The duodenum appeared normal as did the stomach with no ulcers or lesions. The scope was removed. The patient brought to recovery room in stable condition. Job ID: [id number] MTDD
[2018-12-15] MEDS ORDERED: Sodium Chloride 0.9% 1,000 ML IV SCH (15:09)
[2018-12-15] MEDS: HumaLOG 300 UNITS/3 ML VIAL SC PRN (18:27)
--- NOTE | 2018-12-15 23:26 | PDOC.HOSPP ---
- Subjective Encounter Date: 12/15/18 Encounter Time: 14:00 Subjective: The patient states that he started having abdominal pain three days ago, it was severe. He did admit to eating fish, fajitas and some hamburgers prior. Has never had this pain before, no fevers or chills. Currently he denies pain. - Objective Vital Signs & Weight: Vital Signs (12 hours) Temp Pulse Resp BP BP Pulse Ox 12/15/18 20:00 97.9 F 61 16 168/75 H 98 12/15/18 17:37 59 L 159/72 H 12/15/18 16:37 52 L 194/89 H 12/15/18 16:00 98.8 F 53 L 16 185/83 H 97 12/15/18 14:37 51 L 177/82 H 12/15/18 13:05 97.8 F 53 L 16 190/86 H 97 Weight Weight 160 lb 14.4 oz I&O: 12/14/18 12/15/18 12/16/18 06:59 06:59 06:59 Intake Total 2900 360 Balance 2900 360 Result Diagrams: 12/15/18 07:05 12/15/18 07:05 Additional Labs: Accuchecks 12/15/18 12/15/18 12/15/18 21:31 16:47 12:51 POC Glucose 201 H 272 H 196 H 12/15/18 12/15/18 05:56 03:41 POC Glucose 176 H 166 H Radiology Reviewed by me: Yes Hospitalist ROS - Review of Systems Constitutional: denies: fever, chills Respiratory: denies: cough, dry, shortness of breath - Medication Medications: Active Medications Generic Name Dose Route Start Last Admin Trade Name Freq PRN Reason Stop Dose Admin Acetaminophen 650 mg 12/14/18 20:41 12/14/18 22:37 Tylenol PO 650 mg Q6H PRN Administration Headache/Fever or Pain Atenolol 25 mg 12/14/18 09:00 12/15/18 06:22 Tenormin PO 25 mg DAILY STEVE Administration Famotidine 20 mg 12/14/18 09:00 12/15/18 20:49 Pepcid SLOW IVP 20 mg Q12HR STEVE Administration Finasteride 5 mg 12/14/18 09:00 12/15/18 13:14 Proscar PO 5 mg DAILY STEVE Administration Hydralazine HCl 10 mg 12/13/18 21:07 12/15/18 16:37 Apresoline SLOW IVP 10 mg Q4H PRN Administration SBP > 180 and HR < 70 Piperacillin Sod/Tazobactam 100 mls @ 200 mls/hr 12/13/18 23:59 12/15/18 18: 27 Sod 3.375 gm/ Sodium Chloride IVPB 100 mls Q6HR STEVE Administration Sodium Chloride 1,000 mls @ 75 mls/hr 12/15/18 15:09 12/15/18 16:09 Normal Saline 0.9% IV Not Given .[id number] STEVE Insulin Human Lispro 0 units 12/13/18 21:07 12/15/18 18:27 Humalog SC 6 unit .MODERATE SLIDING SC PRN Administration Moderate Correctional Scale Tamsulosin HCl 0.4 mg 12/14/18 09:00 12/15/18 13:14 Flomax PO 0.4 mg DAILY STEVE Administration - Exam Eye: PERRL ENT: normocephalic atraumatic Neck: supple, symmetric, no JVD Heart: RRR, no murmur, no gallops, no rubs Respiratory: CTAB, no wheezes, no rales Gastrointestinal: soft, non-distended Gastrointestinal - other findings: RUQ tenderness to palpation, hyperactive bowel sounds Extremities: no cyanosis, no clubbing, no edema Skin: normal turgor, no lesions Neurological: cranial nerve grossly intact, normal sensation to touch, no weakness Musculoskeletal: normal tone, normal strength, diffuse muscle atrophy Psychiatric: normal behavior, A&O x 3, oriented to person Hosp A/P - Plan Chest X ray 12/13: no significant disease, aorta atherosclerosis Abdomen ultrasound 12/13 : minimal hepatomegaly with echogenicity, no gallstones CT abdomen 12/13: no acute inflammatory process, high grade degenerative disc disease L5/S1 MRI abdomen 12/14: choledocholithiasis, bilateral renal cysts ERCP 12/15: filling defect within central common duct, no filling defects ECHO 12/14 : mild MR, mild aortic insufficiency This is 78 year old male with history of GERD, BPH, type II diabetes, hypertension who presented with severe abdominal pain, admitted for cholangitis , found to have possible choledocholithiasis vs biliary obstruction s/p sphincterotomy #Cholangitis secondary to biliary obstruction vs choledolithiasis s/p sphincterotomy #Transaminitis - patient with RUQ on admission, LFTS trending up and got ERCP today, however now downtrending - on IV zosyn day 3, switch to oral tomorrow - full liquid diet today, advance tomorrow - surgery consult for possible cholecystectomy - HIDA scan in am #Anemia - HB 12.3, possibly dilutional from fluids BPH - finasteride and flomax TYPe II diabetes - continue sliding scale - full liquid diet GERD- - nexium Hypertension - continue flomax - increased to 180, will stop IV fluids if tolerating full liquid diet Bradycardia - in the 50's due to anasthesia, Asymptomatic will monitor - ECHO unremarkable, check EKG GI prophylaxis: pepcid Code status: full code DVT prophylaxis: lovenox
[2018-12-16] MEDS: Piperacillin/Tazobactam 3.375 GM in Sodium Chloride 0.9% 100 ML IVPB SCH ×2 (05:05→12:33)
[2018-12-16 06:16] LABS: #Lymphocytes 0.8 thou/uL (1.20-3.40); #Monocytes 0.4 thou/uL (0.11-0.59); #Neutrophils 3.1 thou/uL (1.40-6.50); %Basophils 0.5 % (0.0-1.0); %Lymphocytes 17.3 % (21.0-51.0); %Neutrophils 72.2 % (42.0-75.0); Hemoglobin 12.4 g/dL (14.0-18.0); Mean Corpuscular HGB CONC 34.6 g/dL (32.0-36.0); Mean Corpuscular Hemoglobin 33.7 pg (27.0-31.0); Mean Corpuscular Volume 97.4 fL (78.0-98.0); Mean Platelet Volume 7.9 fL (7.4-10.4); Platelet Count 131 thou/uL (130-400); RBC Distribution Width 11.8 % (11.5-14.5); Red Blood Cell (RBC) Count 3.68 mill/uL (4.70-6.10); White Blood Cell (WBC) Count 4.3 thou/uL (4.8-10.8)
[2018-12-16 06:55] LABS: ALT (SGPT) 181 U/L (8-55); AST (SGOT) 102 U/L (5-34); Albumin 3.1 g/dL (3.4-4.8); Alkaline Phosphatase 122 U/L (40-110); Bilirubin, Direct 2.7 mg/dL (0.1-0.3); Bilirubin, Total 3.8 mg/dL (0.2-1.2); Lipase 22 U/L (8-78); Protein, Total 6.3 g/dL (5.8-8.1)
[2018-12-16] MEDS: Atenolol 25 MG TAB PO SCH (12:32)
[2018-12-16] MEDS: Famotidine/PF 20 mg/2ml Vial SLOW IVP SCH (12:32)
[2018-12-16] MEDS: Tamsulosin HCl 0.4 MG CAP PO SCH (12:33)
[2018-12-16] MEDS: Finasteride 5 MG TAB PO SCH (12:33)
[2018-12-16] MEDS: HumaLOG 300 UNITS/3 ML VIAL SC PRN (12:42)
--- NOTE | 2018-12-16 14:09 | NM ---
HEPATOBILIARY SCAN: HISTORY: Obstructive jaundice of unclear etiology. Recent sphincterotomy. RADIOPHARMACEUTICAL: Technetium 99m mebrofenin 4.8 millicuries injected intravenously. CCK-8 TECHNIQUE: The patient was pre-treated with 1.4 mcg of CCK-8 one-half prior to the administration of the radioph armaceutical. A 30 minute infusion of 1.4 mcg was also infused slowly after filling of the gallbladde r. FINDINGS: There was normal extraction of tracer material by the liver with normal excretion into the biliary tr act and small bowel loops and normal filling of the gallbladder. Calculated gallbladder ejection fraction following CCK infusion measured 36%. IMPRESSION: Normal examination. POS: [facility]
[2018-12-16 15:35] VITALS: BP 168/72; TEMP 98.6
--- NOTE | 2018-12-17 09:41 | PRG ---
DATE OF SERVICE: 12/16/2018 SUBJECTIVE: Mr. Gaviria is feeling much better today. He has no pain. He reports that his HIDA scan cause no pain. He is eating well. He has had no melena. He has had one bowel movement. He has no nausea, vomiting, abdominal pain or back pain. OBJECTIVE: VITAL SIGNS: Temperature is 98.6, pulse 73, blood pressure 168/72. HEENT: Nonicteric. LUNGS: Clear. ABDOMEN: Soft and nontender. LABORATORY DATA: White count 4.3, hemoglobin 12.4, it was 12.3 yesterday and 12.5 today, platelets are 131. Bilirubin is 3.8, it was 4.4 yesterday and 4.9 today before that. AST is 102 down from 647 on admission, ALT is 182 down from 397 on admission. Lipase is 22. Hepatitis A, B, and C were negative. Blood cultures negative 48 hours. Other studies, HIDA scan today showed ejection fraction of 36% and there is no filling in the small bowel. ASSESSMENT: 1. This is a gentleman, who presented with a picture of cholangitis with fever, pain to the back and right upper quadrant, chills, and elevated liver enzymes, which were new finding in him, although he had no gallstones seen on ultrasound, mildly prominent common bile duct and that a CAT scan was nondiagnostic and then an MRCP that suggested he had a choledocholithiasis with a liver test going up during this time. No other focus of infection and negative hepatitis panel. We went for ERCP yesterday, at which time there was no overt filling defect, but there was no biliary drainage. Once we had access the duct, negative sphincterotomy, a large amount of crankcase biliary material came out, duct was swept several times. There was no stones retrieved, but there was spontaneous drainage of contrast. I suspect the past either small amount of sludge or choledocholithiasis and he may have a component of ampullary stenosis as the ampulla was on the border of a periampullary diverticula. 2. The patient is doing well, wants to go home. His HIDA scan was negative. At this time, I do not think it is adamant that he have a cholecystectomy. RECOMMENDATIONS: I think he can go home. He does not need any antibiotics. Liver function tests were trending downward. I have asked him to follow up in the office in 1 to 2 weeks. Stay on a low-fat diet. If he has recurrent pain, we will refer to General Surgery for cholecystectomy, although I see no reason for one now with normal ejection fraction and no reproduction of symptoms on HIDA scan and normal gallbladder ultrasound with no abnormalities or gallstones. If his LFTs do not go to baseline, we will look for other causes. I have discussed with the family to watch for signs of bleeding or infection if he would have either including melena, black tarry diarrhea or fevers or recurrent pain to return to the hospital. Job ID: [id number]
== END 2018-12-16 17:15 | disposition home or self-care (01) | DRG 445 ==
LOC: ERS 13:53 → 2NO 22:57
PROVIDERS: ADMIT Internal Medicine; ATTEND Internal Medicine
PROC: 0F798ZZ Dilation of Common Bile Duct, Via Natural or Artificial Opening Endoscopic (ICD-10-PCS; principal; 2018-12-15)
PROC: BF111ZZ Fluoroscopy of Biliary and Pancreatic Ducts using Low Osmolar Contrast (ICD-10-PCS; 2018-12-15)
DX: K80.31 Calculus of bile duct with cholangitis, unspecified, with obstruction (principal); E87.2 Acidosis; K80.51 Calculus of bile duct without cholangitis or cholecystitis with obstruction; N40.0 Benign prostatic hyperplasia without lower urinary tract symptoms; E11.9 Type 2 diabetes mellitus without complications; I10 Essential (primary) hypertension; K21.9 Gastro-esophageal reflux disease without esophagitis; D64.9 Anemia, unspecified; R00.1 Bradycardia, unspecified; R94.5 Abnormal results of liver function studies; K57.30 Diverticulosis of large intestine without perforation or abscess without bleeding; Z98.1 Arthrodesis status
CPT/HCPCS: 36415; 36416; 71045; 74177; 74183; 74330; 76705; 78227; 80048; 80053; 80074; 80076; 83605; 83690; 84484; 85025; 85610; 85652; 86140; 87040; 90471; 90670; 93005; 93306; 96361; 96365; 96375; A9537; C9113; G0009; J0360; J0692; J1650; J2270; J2405; J2543; J3010; J3370; J3490; S0028

== ENCOUNTER 2019-02-18 17:40 | Emergency (ER) | payer MEDICARE, MEDICAID ==
--- NOTE | 2019-02-18 20:51 | RAD ---
LUMBAR SPINE THREE VIEWS: History: Back pain. FINDINGS: Lumbar vertebra maintain normal height and alignment. There are moderate degenerative changes with os teophytes and facet hypertrophy. Loss of disc space at L4-5 and L5-S1 levels. IMPRESSION: Moderate degenerative changes. POS: [facility]
== END 2019-02-18 21:53 | disposition home or self-care (01) ==
LOC: ERS 17:40
DX: M54.41 Lumbago with sciatica, right side (principal); E11.9 Type 2 diabetes mellitus without complications; I10 Essential (primary) hypertension; Z79.891 Long term (current) use of opiate analgesic; Z79.84 Long term (current) use of oral hypoglycemic drugs; Z79.899 Other long term (current) drug therapy
CPT/HCPCS: 72100

== ENCOUNTER 2020-04-23 09:25 | Inpatient (IN) | payer MEDICARE, MEDICAID ==
[2020-04-23] MEDS ORDERED: Morphine 2 MG/ML VIAL ONE (10:17)
--- NOTE | 2020-04-23 11:00 | CT ---
CT BRAIN: Date: 04/23/2020 PROVIDED CLINICAL HISTORY: Fall with pain. FINDINGS: The ventricular system appears normal in size and morphology. There is no evidence for intracranial h emorrhage or mass effect. The extracranial soft tissues and osseous structures demonstrate no acute a bnormality. Presumably remote metallic foreign body within the right premaxillary subcutaneous adipos e layer. IMPRESSION: No evidence for an intracranial hemorrhage or mass effect. POS: [facility]
[2020-04-23 11:01] LABS: ALT (SGPT) 13 U/L (8-55); AST (SGOT) 12 U/L (5-34); Albumin 2.4 g/dL (3.4-4.8); Alkaline Phosphatase 41 U/L (40-110); Anion Gap 10 mmol/L (10-20); BUN (Urea Nitrogen) 10 mg/dL (8.4-25.7); Bilirubin, Total 0.3 mg/dL (0.2-1.2); CK (CPK) 46 U/L (30-200); Calc. Creatinine Clearance 0 mL/min (70-130); Carbon Dioxide 15 mmol/L (23-31); Chloride 120 mmol/L (98-107); Globulin 1.9 g/dL (2.4-3.5); Glucose 180 mg/dL (83-110); Protein, Total 4.3 g/dL (5.8-8.1); Sodium 142 mmol/L (136-145)
[2020-04-23 11:06] LABS: Hemoglobin 7.3 g/dL (14.0-18.0); Mean Corpuscular HGB CONC 35.4 g/dL (32.0-36.0); Mean Corpuscular Hemoglobin 35.4 pg (27.0-31.0); Red Blood Cell (RBC) Count 2.05 mill/uL (4.70-6.10); White Blood Cell (WBC) Count 4.9 thou/uL (4.8-10.8)
--- NOTE | 2020-04-23 11:11 | RAD ---
PORTABLE CHEST: DATE: 04/23/2020. PROVIDED CLINICAL HISTORY: Trauma. FINDINGS: Comparison 12/13/2018. Cardiac and mediastinal silhouette is within normal limits. No focal consoli dation, pleural fluid, or pneumothorax apparent. IMPRESSION: No evidence for an acute cardiopulmonary process. POS: [facility]
--- NOTE | 2020-04-23 11:12 | RAD ---
LEFT ANKLE 3 VIEWS: HISTORY: Fell on ice with left ankle pain. FINDINGS: Some mild arthritic changes of the ankle. There are calcaneal spurs present. There are no signs of fracture or joint effusion. IMPRESSION: No acute injury. POS: [facility]
--- NOTE | 2020-04-23 11:12 | RAD ---
LEFT KNEE 4 VIEWS: Date: 04/23/2020 HISTORY: Fell on ice with knee and hip pain. 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 There is some mild medial compartment joint spac e narrowing. There is no fracture or joint effusion. IMPRESSION: No acute injury. POS: [facility]
--- NOTE | 2020-04-23 11:15 | RAD ---
TWO VIEWS LEFT HIP: DATE: 04/23/2020. PROVIDED CLINICAL HISTORY: Fall. FINDINGS: There is a fracture involving the left proximal femur, without involvement of the lesser trochanter a pparent, probably either basicervical neck fracture or an intertrochanteric fracture without the less er trochanteric involvement apparent radiographically. No additional fracture is evident. The femor al-acetabular relationship is maintained. IMPRESSION: Displaced left proximal femoral fracture. POS: [facility]
[2020-04-23 11:19] LABS: #Eosinphils 0.1 thou/uL (0.0-0.7); #Lymphocytes 0.8 thou/uL (1.20-3.40); #Monocytes 0.2 thou/uL (0.11-0.59); #Neutrophils 3.8 thou/uL (1.40-6.50); %Basophils 0.2 % (0.0-1.0); %Eosinophils 1.2 % (0.0-10.0); %Lymphocytes 15.9 % (21.0-51.0); %Monocytes 4.2 % (0.0-10.0); %Neutrophils 78.4 % (42.0-75.0); MDiff Complete? YES; Mean Platelet Volume 7.5 fL (7.4-10.4); Platelet Count 102 thou/uL (130-400); Platelet Morphology Comment Appears Decreased; Polychromasia SLIGHT = 2-3 cells (100X) (0-2/hpf); RBC Distribution Width 11.6 % (11.5-14.5)
[2020-04-23] MEDS ORDERED: Morphine 4 MG/ML VIAL ONE (11:35)
[2020-04-23] MEDS ORDERED: Ondansetron PF 4 MG/2 ML Vial ONE ×2 (11:36→15:37)
[2020-04-23 11:50] LABS: Calcium 5.8 mg/dL (7.8-10.44); Potassium 2.8 mmol/L (3.5-5.1)
[2020-04-23 11:51] LABS: PTT 24.6 sec (22.9-36.1); Prothrombin Time 13.5 sec (12.0-14.7)
[2020-04-23 11:58] LABS: Bilirubin Negative (Negative); Blood, Urine Negative (Negative); Clarity Clear (Clear); Glucose, Urine (Dipstick) Greater than 1000 mg/dL (Negative); Ketone, Urine Negative (Negative); Leukocyte Negative Leu/uL (Negative); Nitrite Negative (Negative); Protein, Urine (Dipstick) Negative (Neg-Trace); Specific Gravity, Urine 1.017 (1.002-1.036); Urobilinogen Normal mg/dL (Less than 2)
[2020-04-23 12:07] LABS: Acetaminophen Less than 6.0 mcg/mL (10.0-30.0); Alcohol Less than 10 mg/dL (Less than 10); Salicylate Less than 8.0 mg/dL (15.0-30.0)
[2020-04-23] MEDS ORDERED: Potassium Chloride 20 MEQ/100 ML PREMIX BAG IVPB SCH (12:15)
--- NOTE | 2020-04-23 12:43 | CON ---
DATE OF CONSULTATION: We were asked by ER to see patient. The patient's todkhboh-ko-iwn is in the room with him. Apparently, even though services were canceled per family, he decided to take out the trash. In doing so, he slipped and fell, landing on his left hip. Iutyibce-gf-fal states no other injuries. She is interpreting for him. He does have some pain over the left hip but is able to wiggle his toes well. He has diabetes, but does not have any neuropathies as of yet. Otherwise, he is resting in a gurney in room #1, and in no acute distress. The [id number] states he is at his normal mentation. PAST MEDICAL HISTORY: Positive for hypertension, diabetes, some GERD, pancreatitis. SURGERIES: He has had neck, spine, and shoulder. ALLERGIES: HE DOES NOT HAVE ANY ALLERGIES TO ANY MEDICATIONS. MEDICATIONS: 1. Atenolol. 2. Esomeprazole sodium. 3. Metformin. 4. Glipizide. 5. Lisinopril. 6. Tamsulosin. 7. Finasteride. FAMILY HISTORY: For this event, noncontributory. SOCIAL HISTORY: He resides with his son, [id number], and his and their son. No alcohol, nicotine, or drug products whatsoever. He is retired. REVIEW OF SYSTEMS: Positive for left hip pain, but he denies any chest pain, shortness of breath. He does have some bladder issues, but rest of review of systems as discussed is negative. PHYSICAL EXAMINATION: GENERAL: Well-nourished well-developed speaking male with fuxohtlr-ey-ppb at the bedside who is interpreting. His speech is clear per daughter in-law. Affect pleasant. Answers questions appropriately. He is oriented x3. HEENT: Scalp atraumatic. Face symmetric. Tongue midline. EXTREMITIES: Upper extremities are equal size, shape, and symmetry. Normal bulk and tone. Strength, movements, pulses, sensations are all grossly intact. Respirations 16, no acute distress. PELVIS: No pain with rocking. Left lower extremity is shortened and outward rotated but he is able to move bilateral lower extremities from the knee down very well. Denies any sensory losses. DP and PT pulses are equal. LABS: H and H 7.3 and 20.5, platelets 102. Coags normal. Chemistries positive. Potassium 2.8, creatinine 0.62, glucose 180, calcium 5.8. UA, glucose greater than 1000. COVID is pending. IMAGING DATA: X-rays show a left intertrochanteric fracture. ASSESSMENT: Left hip fracture. PLAN: I spoke with daughter in-law who is interpreting. The patient has had surgery and has not had any issues in the past. We will get him set up for surgery today for a left DHS plating. I explained the procedure to the daughter, who spoke to her jhmibu-qz-bef. He understands the surgery as has been explained to him. He understands the risks, the benefits of surgery. Their questions and concerns have been answered, and they are amenable to go forward with surgery. He has been n.p.o. since seven this morning. He had an egg and some coffee, but otherwise he is still quite active at home. If they have further questions or concerns prior to surgery, we will go over those with them. Otherwise, we will get him set up for some antibiotics and surgery today if medically cleared by Trauma. Job ID: [id number]
[2020-04-23] MEDS ORDERED: Potassium Chloride 20 MEQ/100 ML PREMIX BAG ONE (13:14)
[2020-04-23 13:18] LABS: SARS-CoV-2 NAA Rapid Test Not Detected (NotDetected)
[2020-04-23 13:46] LABS: #Lymphocytes 1.5 thou/uL (1.20-3.40); #Monocytes 0.4 thou/uL (0.11-0.59); #Neutrophils 7.9 thou/uL (1.40-6.50); %Basophils 0.1 % (0.0-1.0); %Eosinophils 0.2 % (0.0-10.0); %Lymphocytes 15.7 % (21.0-51.0); %Monocytes 4.3 % (0.0-10.0); %Neutrophils 79.8 % (42.0-75.0); Hemoglobin 13.4 g/dL (14.0-18.0); Mean Corpuscular HGB CONC 34.1 g/dL (32.0-36.0); Mean Corpuscular Hemoglobin 33.3 pg (27.0-31.0); Mean Corpuscular Volume 97.6 fL (78.0-98.0); Mean Platelet Volume 7.6 fL (7.4-10.4); Platelet Count 207 thou/uL (130-400); RBC Distribution Width 11.9 % (11.5-14.5); Red Blood Cell (RBC) Count 4.02 mill/uL (4.70-6.10); White Blood Cell (WBC) Count 9.8 thou/uL (4.8-10.8)
[2020-04-23 14:17] LABS: Anion Gap 14 mmol/L (10-20); BUN (Urea Nitrogen) 16 mg/dL (8.4-25.7); Calc. Creatinine Clearance 0 mL/min (70-130); Calcium 9.4 mg/dL (7.8-10.44); Carbon Dioxide 23 mmol/L (23-31); Chloride 106 mmol/L (98-107); Glucose 237 mg/dL (83-110); Magnesium 1.5 mg/dL (1.6-2.6); Phosphorus 2.6 mg/dL (2.3-4.7); Potassium 4.5 mmol/L (3.5-5.1); Sodium 138 mmol/L (136-145)
--- NOTE | 2020-04-23 14:59 | HP ---
REQUESTING PHYSICIAN: Dr. Gay. ATTENDING SURGEON: Dr. Pizano. CONSULTATIONS: Orthopedics, Dr. Mark. HISTORY OF PRESENT ILLNESS: The patient is a 79-year-old man, who was walking outside on his sidewalk to take garbage out when he slipped and fell on the ice, landing on his left hip. He denied loss of consciousness or any syncopal events. He also denies any blood thinner use. The patient was brought to the emergency department, where he underwent evaluation and examination, was noted to have a left intertrochanteric femur fracture, at which time, we were asked to evaluate the patient for admission and obtain Orthopedic consultation. ALLERGIES: NONE. CURRENT MEDICATIONS: 1. Atenolol. 2. Esomeprazole. 3. Metformin. 4. Glipizide. 5. Lisinopril. 6. Tamsulosin. 7. Finasteride. PAST MEDICAL HISTORY: Gastroesophageal reflux disease, diabetes, pancreatitis, hypertension, and BPH. PAST SURGICAL HISTORY: Back surgery. SOCIAL HISTORY: The patient lives at home with family. He denies drug, tobacco, or alcohol use. The patient is primarily British speaking. Daughter was able to help with translation. REVIEW OF SYSTEMS: Ten-point review of systems is negative except as otherwise stated. PHYSICAL EXAMINATION: VITAL SIGNS: Blood pressure 155/78, heart rate 75, respirations 18, oxygen saturation 98% on room air, and temperature is 98.8. GENERAL: The patient is resting comfortably in bed. He is awake, alert, conversant, appropriate. [place] Coma Scale is 15. HEENT: Head is normocephalic and atraumatic. Eyes; extraocular motion intact. PERRLA bilaterally. Ears are atraumatic without discharge. Nose is atraumatic without discharge. Oropharynx is clear. NECK: Nontender. Trachea is midline with no JVD. CHEST: Clear to auscultation with good inspiratory and expiratory effort. HEART: Regular rate and rhythm. ABDOMEN: Soft, flat, nontender with active bowel sounds. EXTREMITIES: Neurovascularly intact x4. PELVIS: Stable with tenderness to palpation to the left hip consistent with his fracture. BACK: By report, back is atraumatic and nontender. LABORATORY FINDINGS: White blood cell count 9.8, hemoglobin 13.4, hematocrit 39.2, and platelets 207. Chemistries are pending. INR 1.0. Urinalysis is unremarkable with the exception of positive for glucose. COVID is negative. RADIOGRAPHIC FINDINGS: AP chest x-ray shows no evidence of acute cardiopulmonary process. CT of the brain without contrast showed no evidence for intracranial hemorrhage or mass effect. Views of the right hip shows a displaced left proximal femur fracture. Views of the right ankle show no acute injury. Views of the right knee show no acute injury. ASSESSMENT: 1. Status post ground level fall. 2. Left proximal femur fracture. 3. History of hypertension. 4. Acute pain secondary to trauma. PLAN: Will be to admit the patient to the surgical floor. He will be kept n.p.o. He will most likely be able to go from the emergency department to preoperative holding area to undergo surgery today. Postoperatively, we will begin physical and occupational therapy, discuss placement, pulmonary toilet, gastritis, mechanical VTE prophylaxis. The patient was evaluated in the emergency department by Orthopedics and with Dr. Pizano. Job ID: [id number]
[2020-04-23] MEDS ORDERED: Lidocaine 1% PF 5 ML VIAL ONE (15:37)
[2020-04-23] MEDS ORDERED: Succinylcholine 200 MG/10 ml SYRINGE FS ONE (15:37)
[2020-04-23] MEDS ORDERED: PROPOFOL 200 MG/20 ML VIAL ONE (15:37)
[2020-04-23] MEDS ORDERED: Rocuronium Bromide 10 MG/ML (10ML VIAL) ONE (15:37)
[2020-04-23] MEDS ORDERED: Dexamethasone 20 MG/5 ML VIAL ONE (15:37)
[2020-04-23] MEDS ORDERED: ePHEDrine 50 MG/ML VIAL ONE (15:37)
[2020-04-23] MEDS ORDERED: PHENYLEPHRINE-NS 100 MCG/ML 10 ML SYRINGE ONE (15:37)
[2020-04-23] MEDS ORDERED: Fentanyl 100 MCG/2 ML VIAL ONE ×4 (16:03→18:58)
[2020-04-23] MEDS ORDERED: SUGAMMADEX SODIUM 200 MG/2 ML VIAL ONE (16:59)
--- NOTE | 2020-04-23 17:17 | RAD ---
Left hip 2 views intraoperative fluoroscopy HISTORY: Hip fracture. FINDINGS: Intraoperative fluoroscopy was provided for internal fixation as performed by Dr. Mark. Spot fluoroscopic images show compression nail and side plate to transfix the left hip fracture. Anatomic alignment. Fluoroscopy time 31.5 seconds.
[2020-04-23] MEDS ORDERED: HYDROmorphone 0.5 MG/0.5 ML SYRINGE ONE (17:24)
--- NOTE | 2020-04-23 17:46 | OP ---
DATE OF PROCEDURE: 04/23/2020 PREOPERATIVE DIAGNOSIS: Left intertrochanteric femur fracture. POSTOPERATIVE DIAGNOSIS: Left intertrochanteric femur fracture. SURGICAL PROCEDURE: Open reduction and internal fixation of left intertrochanteric femur fracture. ANESTHESIA: General. GRANTS AND CONTRACTS ASSISTANT: Rangel Fall PA-C ESTIMATED BLOOD LOSS: 50 mL. IMPLANTS: S[employer] DHS 135-degree 3-hole sideplate with 85-mm hip screw. COMPLICATIONS: None. DRAINS: None. SPECIMENS: None. OUTCOME: Satisfactory. INDICATIONS FOR PROCEDURE: The patient is a 79-year-old gentleman status post slip and fall on ice sustaining a left intertrochanteric femur fracture. After discussion with the patient and his daughter including risks and benefits, we have decided to proceed with open reduction and internal fixation. Informed consent has been obtained. I believe all questions have been answered. DESCRIPTION OF PROCEDURE: The patient was brought to the operating room and a time-out performed followed by induction of general anesthesia. Next, the patient was positioned supine on the fracture table with the injured extremity held in longitudinal traction and slight internal rotation. The well leg was held in extension at the hip on a padded bolster. Next, a sterile prep and drape was performed of the left lateral thigh. An incision was made distal to the greater trochanter of the proximal femur in line with the femur. After skin was sharply incised, dissection was carried down to the underlying fascia sue, which was also incised in line with the skin incision. The fascia of the vastus lateralis also incised in line with the skin incision and then the muscle belly reflected anteriorly and held in place by my front desk assistant with a radiolucent protractor allowing the access to the lateral cortex of the femur. Next, a 130-degree jig was used to drill a threaded guidewire through the lateral cortex of the femur up the femoral neck into the femoral head approaching a [id number] position in the head under C-arm guidance. Next, a measuring stick was used to determine the appropriate length screw and reaming depth. The reamer was then passed over the guidewire while my front desk assistant maintained retraction of soft tissues. Next, the hip screw with a 3-hole 135-degree sideplate was introduced into the wound. The hip screw screwed up into the femoral neck and into the femoral head under C-arm guidance. The plate was then engaged on the hip screw and delivered to the lateral cortex of the femur where it was held in place with three 4.5 mm cortical screws. At the completion of this, final AP and lateral C-arm images were obtained that showed near anatomic alignment of the fracture and appropriate positioning of the hardware. The wound was then irrigated by my front desk assistant and then wound closure performed with 0 Vicryl deep followed by 2-0 Vicryl and then louis for the skin. A Xeroform gauze and tape dressing was then applied to the lateral thigh. The patient was then transported to recovery room in stable condition. There were no complications. He tolerated the procedure well. Job ID: [id number]
[2020-04-23] MEDS ORDERED: Dextrose 5% in Water 1,000 ML IV PRN (17:51)
[2020-04-23] MEDS ORDERED: Ondansetron PF 4 MG/2 ML Vial IVP PRN (17:51)
[2020-04-23] MEDS ORDERED: Morphine 2 MG/ML VIAL SLOW IVP PRN (17:51)
[2020-04-23] MEDS ORDERED: traMADol HCl 50 MG TAB PO PRN (17:51)
[2020-04-23] MEDS ORDERED: Cyclobenzaprine 10 MG TAB PO PRN (17:51)
[2020-04-23] MEDS ORDERED: hydrALAZINE 20 MG/ML VIAL SLOW IVP PRN (17:51)
[2020-04-23] MEDS ORDERED: Dextrose 50% Abboject 50 ML SYRINGE SLOW IVP PRN (17:51)
[2020-04-23 19:23] VITALS: BMI 26.6
[2020-04-23] MEDS ORDERED: Acetaminophen 325 MG TAB ONE (21:22)
[2020-04-23] MEDS: Acetaminophen 325 MG TAB PO SCH (21:45)
[2020-04-23] MEDS: Sodium Chloride 0.9% 1,000 ML IV SCH (21:46)
[2020-04-23] MEDS: Ibuprofen 600 MG TAB PO SCH (22:36)
[2020-04-23] MEDS: Famotidine 20 MG TAB PO SCH (22:36)
[2020-04-23] MEDS: CEFAZOLIN 2 GM in Premix Bag 1 BAG IVPB SCH (22:37)
[2020-04-24] MEDS: Insulin Regular 300 UNITS/3 ML VIAL SC PRN ×5 (00:53→21:08)
--- NOTE | 2020-04-24 04:06 | PRG ---
DATE OF SERVICE: 04/24/2020 SUBJECTIVE: Mr. Gaviria is a 79-year-old male status post ORIF, left intertrochanteric femur fracture. The patient is recovering in the PACU. OBJECTIVE: Temperature 98.2, pulse 81, respiratory rate 14, O2 95 on room air, blood pressure 1280/20. There are no beds currently available on the floor, the patient will be transferred to the floor in the morning once beds are available. We will resume all home medications. Job ID: [id number] [facility]
[2020-04-24 05:24] LABS: #Lymphocytes 1.2 thou/uL (1.20-3.40); #Monocytes 0.5 thou/uL (0.11-0.59); #Neutrophils 6.6 thou/uL (1.40-6.50); %Basophils 0.5 % (0.0-1.0); %Eosinophils 0.1 % (0.0-10.0); %Lymphocytes 14.8 % (21.0-51.0); %Monocytes 5.5 % (0.0-10.0); %Neutrophils 79.1 % (42.0-75.0); Hemoglobin 11.3 g/dL (14.0-18.0); Mean Corpuscular HGB CONC 33.4 g/dL (32.0-36.0); Mean Corpuscular Hemoglobin 32.7 pg (27.0-31.0); Mean Corpuscular Volume 97.8 fL (78.0-98.0); Mean Platelet Volume 7.6 fL (7.4-10.4); Platelet Count 184 thou/uL (130-400); RBC Distribution Width 11.7 % (11.5-14.5); Red Blood Cell (RBC) Count 3.45 mill/uL (4.70-6.10); White Blood Cell (WBC) Count 8.4 thou/uL (4.8-10.8)
[2020-04-24] MEDS ORDERED: Acetaminophen 325 MG TAB ONE ×3 (05:36→17:47)
[2020-04-24] MEDS: Acetaminophen 325 MG TAB PO SCH ×5 (05:39→23:05)
[2020-04-24] MEDS: CEFAZOLIN 2 GM in Premix Bag 1 BAG IVPB SCH (05:39)
[2020-04-24 05:47] LABS: Anion Gap 12 mmol/L (10-20); BUN (Urea Nitrogen) 17 mg/dL (8.4-25.7); Calc. Creatinine Clearance 58 mL/min (70-130); Calcium 8.5 mg/dL (7.8-10.44); Carbon Dioxide 24 mmol/L (23-31); Chloride 104 mmol/L (98-107); Glucose 265 mg/dL (83-110); Potassium 4.9 mmol/L (3.5-5.1); Sodium 135 mmol/L (136-145)
[2020-04-24] MEDS: Sodium Chloride 0.9% 1,000 ML IV SCH (05:49)
[2020-04-24] MEDS ORDERED: Magnesium Sulfate 3 GM in Sodium Chloride 0.9% 100 ML IV SCH (06:00)
[2020-04-24 06:36] LABS: Phosphorus 4.2 mg/dL (2.3-4.7)
[2020-04-24] MEDS: Ibuprofen 600 MG TAB PO SCH ×3 (06:55→23:04)
[2020-04-24] MEDS ORDERED: Magnesium Sulfate 3 GM in Sodium Chloride 0.9% 250 ML 250 ML IVPB SCH (07:00)
[2020-04-24] MEDS ORDERED: FLU VACC QS2020-21(65YR UP)/PF 240 MCG/0.7 ML SYRINGE IM ONE (09:00)
[2020-04-24] MEDS ORDERED: Atenolol 25 MG TAB PO SCH (09:00)
[2020-04-24] MEDS: Finasteride 5 MG TAB PO SCH (09:03)
[2020-04-24] MEDS: Tamsulosin HCl 0.4 MG CAP PO SCH (09:04)
[2020-04-24] MEDS ORDERED: Famotidine 20 MG TAB ONE (09:06)
[2020-04-24] MEDS ORDERED: Enoxaparin Sodium 40 MG/0.4 ML SYRINGE ONE (09:08)
[2020-04-24] MEDS: Famotidine 20 MG TAB PO SCH ×2 (09:08→20:57)
[2020-04-24] MEDS: Enoxaparin Sodium 40 MG/0.4 ML SYRINGE SC SCH (09:08)
--- NOTE | 2020-04-24 13:44 | PRG ---
DATE OF SERVICE: 04/24/2020 SUBJECTIVE: The patient is hospital day 2, postop day 1, status post open reduction and internal fixation of left intertrochanteric femur fracture. He tolerated this procedure well. Unfortunately due to hospital capacity, he remained in the Postanesthesia Care Unit overnight. This has also delayed his beginning to work with physical and occupational therapy. Otherwise, he is doing well. His pain is controlled. He is tolerating a diet. OBJECTIVE: VITAL SIGNS: Temperature is 96.8, heart rate 70, blood pressure 144/73, respirations 19, and oxygen saturation 96% on room air. GENERAL: The patient is resting comfortably in bed. He was asleep at the time of my visit. He did awaken to verbal stimuli and other than being drowsy, he was appropriate. HEENT: Unremarkable. LUNGS: Clear to auscultation bilaterally. HEART: Regular rate and rhythm. ABDOMEN: Soft, nontender with active bowel sounds. EXTREMITIES: Neurovascularly intact x4. Postop dressing is clean, dry, and intact. LABORATORY FINDINGS: White blood cell count 8.4, hemoglobin 11.3, hematocrit 33.8, and platelets 184. Sodium 135, potassium 4.9, chloride 104, CO2 of 24, BUN 17, creatinine 1.07, glucose 265, phosphorus 4.2, magnesium 1.5. There are no radiographs reviewed this morning. ASSESSMENT: 1. Status post ground level fall. 2. Status post open reduction and internal fixation of left proximal femur fracture, postop day 1. 3. History of diabetes. 4. Gastroesophageal reflux disease. 5. Hypertension. 6. Hypomagnesemia. PLAN: Will be to continue supportive care. Await physical and occupational therapy evaluations and discuss placement at that time. The patient did have his magnesium replaced. The patient was evaluated and examined with Dr. Pizano this morning during rounds. Job ID: [id number]
[2020-04-24] MEDS: traMADol HCl 50 MG TAB PO PRN (20:56)
--- NOTE | 2020-04-25 03:57 | PRG ---
DATE OF SERVICE: 04/25/2020 SUBJECTIVE: Mr. Gaviria is a 79-year-old male status post fall, postop day #2 from ORIF of left intertrochanteric fracture. The patient resting comfortably in bed. The patient is working with PT. Today, patient walked 300 feet. The patient is working with PT to increase his functional ability and would like to be discharged home. We will reassess his functional status with PT. They feel like he is a safe patient to discharge home after surgery. OBJECTIVE: VITAL SIGNS: Temperature 98.1, pulse 77, respiratory rate 16, O2 saturation Q95, blood pressure 163/71. GENERAL: The patient is sleeping, in no acute distress. PLAN: To continue to work with PT/OT aggressively. Continue DVT prophylaxis and IS. Job ID: [id number] [facility]
[2020-04-25] MEDS: traMADol HCl 50 MG TAB PO PRN (05:50)
[2020-04-25] MEDS: Ibuprofen 600 MG TAB PO SCH (05:51)
[2020-04-25] MEDS: Acetaminophen 325 MG TAB PO SCH ×2 (05:51→12:31)
[2020-04-25] MEDS: HumaLOG 300 UNITS/3 ML VIAL SC PRN ×2 (06:03→12:30)
[2020-04-25] MEDS: Finasteride 5 MG TAB PO SCH (08:11)
[2020-04-25] MEDS: Tamsulosin HCl 0.4 MG CAP PO SCH (08:11)
[2020-04-25] MEDS: Enoxaparin Sodium 40 MG/0.4 ML SYRINGE SC SCH (08:12)
[2020-04-25] MEDS: Famotidine 20 MG TAB PO SCH (08:12)
[2020-04-25] MEDS ORDERED: Atenolol 50 MG TAB PO SCH (09:00)
[2020-04-25 11:44] VITALS: BP 146/70; TEMP 98.2
[2020-04-25] MEDS ORDERED: Ibuprofen 200 MG TAB PO SCH (14:00)
--- NOTE | 2020-04-26 00:31 | DIS ---
DATE OF ADMISSION: 04/23/2020 DATE OF DISCHARGE: 04/25/2020 ADMITTING PHYSICIAN: Dr. Epi Pizano. DISCHARGING PHYSICIAN: Dr. Favian Lobato. CONSULTING PHYSICIAN: Dr. Yeison Mark with Orthopedics. PROCEDURE PERFORMED: ORIF of left hip fracture. HOSPITAL COURSE: The patient was admitted to the emergency department after a ground level fall for left hip fracture. He was taken to the operating room for ORIF of the same. Tolerated well. He actually walked 300 feet on postop day #0, wanting to go home then. The patient has worked with PT. He lives in a ground level home. He has family to take care of him. We are arranging for a walker. He has minimal pain. He has spontaneously voided urine. He is passing flatus and feels like he needs to move his bowels. He is working with . His glucose and blood pressure remain slightly elevated. He will follow up with his PCP of the same. There is no evidence of diabetic ketoacidosis. He can continue his home medication regimen. We will continue his pain medicine. MEDICATIONS FOR DISCHARGE: 1. Tylenol 650 every 6 hours as needed. 2. Atenolol 50 mg daily. 3. Cyclobenzaprine 5 mg 3 times daily as needed. 4. Aspirin 81 mg b.i.d. 5. Proscar 5 mg daily. 6. Motrin 400 mg every 8 hours as needed. 7. Lisinopril 20 mg daily. 8. Zofran as needed. 9. Ultram 50 mg every 6 as needed. 10. Flomax 0.4 mg daily. 11. Glipizide 5 mg daily. 12. Metformin 1 g b.i.d. ADMITTING DIAGNOSIS: Left hip fracture. DISCHARGE DIAGNOSES: 1. Left hip fracture status post open reduction internal fixation. 2. Hypertension. 3. Diabetes. 4. The patient will follow up with Dr. aMrk in 10-14 days and follow up with his PCP in reference for hypertension, hyperglycemia. 5. He is being discharged home with family support. 6. Return precautions were given and verbalized understanding by the patient and the patient's family at the bedside. This was relayed to the patient in Ukrainian at the bedside. Greater than 30 minutes was taken in discharge planning of this patient. Job ID: [id number]
[2020-04-26] MEDS ORDERED: Lisinopril 20 MG TAB PO SCH (09:00)
== END 2020-04-25 13:45 | disposition home or self-care (01) | DRG 482 ==
LOC: ERS 09:25 → UNDOADMIN 11:23 → ERHOLD 11:23 → SURG A 22:18 → ERHOLD 22:18 → PACU-TCU 22:57 → SURG A 04-24 18:27
PROVIDERS: ADMIT Surgery; ATTEND Surgery
PROC: 0QS704Z Reposition Left Upper Femur with Internal Fixation Device, Open Approach (ICD-10-PCS; principal; 2020-04-23)
DX: S72.142A Displaced intertrochanteric fracture of left femur, initial encounter for closed fracture (principal); E11.9 Type 2 diabetes mellitus without complications; W00.0XXA Fall on same level due to ice and snow, initial encounter; Y93.01 Activity, walking, marching and hiking; D64.9 Anemia, unspecified; K21.9 Gastro-esophageal reflux disease without esophagitis; I10 Essential (primary) hypertension; Z20.822 Contact with and (suspected) exposure to COVID-19; Z79.899 Other long term (current) drug therapy; Z79.84 Long term (current) use of oral hypoglycemic drugs; E83.42 Hypomagnesemia
CPT/HCPCS: 0240U; 36415; 36416; 70450; 71045; 76000; 80048; 80053; 80307; 81003; 82550; 83735; 84100; 85025; 85610; 85730; 93005; 96374; 96375; 96376; C1713; J0690; J1100; J1170; J1650; J1815; J2270; J2405; J2704; J3010; J3475; J3480; J3490

== ENCOUNTER 2021-09-25 17:23 | Emergency (ER) | payer MEDICARE, MEDICAID | END 2021-09-25 18:20 | disposition home or self-care (01) | LOC: ERS 17:23 | DX: K04.7 Periapical abscess without sinus (principal); I10 Essential (primary) hypertension; E11.9 Type 2 diabetes mellitus without complications; Z79.84 Long term (current) use of oral hypoglycemic drugs; Z79.899 Other long term (current) drug therapy | CPT/HCPCS: 99282 ==